=== PATIENT | male | born 1955 | race Caucasian/White ===

== ENCOUNTER 2020-05-05 15:29 | Emergency (ER) | payer OTHER | END 2020-05-05 18:59 | disposition home or self-care (01) | LOC: ER 15:29 | DX: S82.041A Displaced comminuted fracture of right patella, initial encounter for closed fracture (principal); W01.0XXA Fall on same level from slipping, tripping and stumbling without subsequent striking against object, initial encounter; Y93.89 Activity, other specified; Y92.89 Other specified places as the place of occurrence of the external cause; Y99.8 Other external cause status ==